=== PATIENT | female | born 1965 | race Caucasian/White ===

== ENCOUNTER → 2016-06-15 10:00 | Outpatient (CLI) | payer MEDICARE ==
--- NOTE | ~2016-06-15 | EC ---
PATIENT:PAOLA TRUONG DATE OF SERVICE: 06/15/16 SEX: F MEDICAL RECORD: [id number] DATE OF : 65 LOCATION:[facility] AGE OF PATIENT: 51 ADMISSION DATE: 06/15/16 REFERRING PHYSICIAN: INTERPRETING PHYSICIAN: TIRSO LADD MD ECHOCARDIOGRAM REPORT ECHO CHARGES 4 ECHO COMPLETE CLINICAL DIAGNOSIS: EDEMA/DYSPNEA/ELEVATED BNP ECHOCARDIOGRAPHIC MEASUREMENTS (adult normal given) AC root (d.<3.7cm) 3.2 LV Septum d (<1.2 cm> 1.5 Valve Excursion 2.0 LV Septum (systole) 1.9 Left Atria (s.<4.0cm> 4.0 LVPW d(<1.2cm) 1.3 RV (d.<2.3cm) 2.8 LVPW (sytole) 1.8 LV diastole(<5.6CM) 5.5 MV E-F(>70mm/sec) LV systole 3.6 LVOT Diameter 1.9 MV exc.(>10mm) Est.ejection fraction (50-75%) Pericardial Effusion N DOPPLER: LVIT A 92.0 E 100 LA RVSP 22.1 LVOT 114 AOP1/2T Asc. Ao 147 RVOT 65.0 RA PA 112 AV Gradient Peak 8.7 AV Mean 5.4 AV Area 1.8 MV Gradient Peak 5.1 MV Mean 1.9 MV Area COMMENTS: Head Filter Tank Tender Helper: Laith HICKMANOE Emergency Medicine Specialist:1 Dr. Ladd TAPE# PACS DATE OF SERVICE: 06/15/2016 Echocardiogram FINDINGS: 1. Left ventricle chamber size is within normal limits. Left ventricular systolic function is normal. Overall ejection fraction estimated at 55%. 2. Left atrium is upper limits of normal at 4.0 cm. Right atrium and right ventricular chamber sizes are as well upper limits of normal. 3. Valvular structures have normal structure and motion. ECHOCARDIOGRAM REPORT [id number] PAOLA TRUONG 4. Doppler interrogation reveals mild mitral regurgitation, mild tricuspid regurgitation. No other valvular insufficiency or stenosis. 5. No evidence of pericardial effusion or left ventricular thrombus. TRANSINT:[id number] Voice Confirmation ID: [id number] DOCUMENT ID: [id number] TIRSO LADD MD CC: [id number] DICTATION DATE: 06/15/16 1440 HIGH SCHOOL COUNSELOR: 06/16/16 0753 DEP CLI 06/15/16 [facility] [address] [place] [address]
== END | disposition home or self-care (01) ==
LOC: D.ECHO 05-30 10:35
DX: R60.0 Localized edema (principal); R06.00 Dyspnea, unspecified

== ENCOUNTER 2016-09-03 10:47 | Emergency (ER) | payer MEDICARE ==
[2016-09-03 11:34] LABS: BASOPHILS 0.1 % (0-2); EOSINOPHILS 0.3 % (0-7); HEMATOCRIT 44.3 % (36.0-48.0); IMMATURE GRANULOCYTES 0.3 % (0-5); LYMPHOCYTES 9.5 % (15-50); MCH 27.5 pg (26.0-34.0); MCHC 31.6 g/dL (31.0-37.0); MCV 86.9 fL (80.0-100.0); MEAN PLATELET VOLUME 10.1 fL (7.4-10.4); MONOCYTES 6.4 % (2-11); NEUTROPHILS 83.4 % (40-80); RDW 14.7 % (11.5-14.5); WBC 14.1 10x3/uL (4.8-10.8)
[2016-09-03 11:41] LABS: PLATELET COUNT 200 10x3/uL (130-400)
[2016-09-03 11:42] LABS: APPEARANCE CLEAR (CLEAR); BILIRUBIN NEGATIVE (NEGATIVE); COLOR YELLOW (YELLOW); GLUCOSE NEGATIVE (NEGATIVE); KETONE NEGATIVE (NEGATIVE); LEUKOCYTE ESTERASE NEGATIVE (NEGATIVE); NITRITE NEGATIVE (NEGATIVE); PROTEIN NEGATIVE (NEGATIVE)
[2016-09-03 11:43] LABS: BACTERIA MODERATE /hpf (NONE SEEN); RED CELLS - URINE 0-5 /hpf (0-5); WHITE CELLS - URINE 0-5 /hpf (0-5)
[2016-09-03 11:44] LABS: MUCUS <1+ /lpf (NONE SEEN)
[2016-09-03 11:57] LABS: ALBUMIN 3.1 g/dL (3.4-5.0); ALKALINE PHOSPHATASE 75 U/L (46-116); ALT (SGPT) 26 U/L (10-68); BILIRUBIN - TOTAL 0.42 mg/dL (0.2-1.3); CALC OSMOLALITY 288 mosm/kg (275-300); CALCIUM 9.2 mg/dL (8.5-10.1); CARBON DIOXIDE 30.5 mmol/L (21.0-32.0); CHLORIDE - SERUM 107 mmol/L (98-107); CREATININE - SERUM 0.8 mg/dL (0.6-1.3); GLUCOSE 128 mg/dL (74-106); PROTEIN - SERUM 6.8 g/dL (6.4-8.2); SODIUM 145 mmol/L (136-145); UREA NITROGEN 8 mg/dL (7-18); eGFR NON AFRICAN AMERICAN 80 mL/min (90-120)
[2016-09-03 12:07] LABS: TROPONIN-I < 0.017 ng/mL (0.000-0.060)
== END 2016-09-03 12:30 | disposition home or self-care (01) ==
LOC: D.ER 10:47
PROVIDERS: Emergency Medicine
DX: F41.9 Anxiety disorder, unspecified (principal); F32.9 Major depressive disorder, single episode, unspecified; M51.36 Other intervertebral disc degeneration, lumbar region; M54.16 Radiculopathy, lumbar region; I10 Essential (primary) hypertension

== ENCOUNTER → 2017-03-07 13:21 | Outpatient (CLI) | payer MEDICARE, MEDICAID | END | disposition home or self-care (01) | LOC: D.MRI 13:21 | DX: M25.561 Pain in right knee (principal) ==

== ENCOUNTER 2017-11-09 16:04 | Emergency (ER) | payer MEDICARE, MEDICAID ==
[~2017-11-09] VITALS: Ht 167.6 cm; Wt 122.7 kg
[2017-11-09 16:16] VITALS: Ht 167.6 cm; Wt 122.7 kg
[2017-11-09] MEDS ORDERED: VERAPAMIL HCL40 MG PO (16:17)
[2017-11-09] MEDS ORDERED: LISINOPRIL5 MG (16:17)
[2017-11-09] MEDS ORDERED: NEXIUM40 MG PO (16:17)
[2017-11-09] MEDS ORDERED: TRAZODONE HCL150 MG (16:18)
[2017-11-09] MEDS ORDERED: XANAX0.25 MG (16:18)
[2017-11-09] MEDS ORDERED: SCOPOLAMINE1 EACH (16:18)
[2017-11-09] MEDS ORDERED: VOLTAREN75 MG PO (16:58)
[2017-11-09 18:24] VITALS: BP 154/105
== END 2017-11-09 18:15 | disposition home or self-care (01) ==
LOC: D.ER 16:04
DX: M25.561 Pain in right knee (principal); I10 Essential (primary) hypertension; K21.9 Gastro-esophageal reflux disease without esophagitis

== ENCOUNTER → 2018-03-18 17:01 | Outpatient (CLI) | payer MEDICARE ==
[2017-11-09 16:16] VITALS: BMI 43.6
[~2018-03-18 17:01] MED LIST: CARAFATE1 G PO; EFFEXOR XR150 MG PO; ELIQUIS2.5 MG PO; HYDROCODON-ACE1 EAC2 PO; LISINOPRIL5 MG PO; MACROBID100 MG PO; NEXIUM40 MG PO; NORCO 10-325 TA1 TAB PO; PHENERGAN25 M1 PO; SCOPOLAMINE1 EACH; TRAZODONE HCL150 MG PO; VERAPAMIL HCL40 MG PO; VOLTAREN75 MG PO; XANAX0.25 MG PO
== END | disposition home or self-care (01) ==
LOC: D.LABREF 17:01
DX: M17.11 Unilateral primary osteoarthritis, right knee (principal); Z11.8 Encounter for screening for other infectious and parasitic diseases

== ENCOUNTER 2018-03-19 10:00 | Inpatient (IN) | payer MEDICARE ==
[~2018-03-19] VITALS: Ht 167.6 cm; Wt 131.8 kg
[~2018-03-19 10:00] MED LIST changes: -CARAFATE1 G PO; -EFFEXOR XR150 MG PO; -ELIQUIS2.5 MG PO; -HYDROCODON-ACE1 EAC2 PO; -MACROBID100 MG PO; -NORCO 10-325 TA1 TAB PO; -PHENERGAN25 M1 PO
[2018-03-19] MEDS ORDERED: NORCO 10-325 TA1 TAB PO (11:11)
[2018-03-19] MEDS ORDERED: EFFEXOR XR150 MG PO (11:12)
[2018-03-19] MEDS ORDERED: CARAFATE1 G PO (11:13)
[2018-03-19 12:52] LABS: BASOPHILS 0.4 % (0-2); EOSINOPHILS 0.4 % (0-7); HEMATOCRIT 43.3 % (36.0-48.0); HEMOGLOBIN 14.2 g/dL (12-16); IMMATURE GRANULOCYTES 0.4 % (0-5); LYMPHOCYTES 43.1 % (15-50); MCH 27.9 pg (26.0-34.0); MCHC 32.8 g/dL (31.0-37.0); MCV 85.1 fL (80.0-100.0); MEAN PLATELET VOLUME 10.5 fL (7.4-10.4); MONOCYTES 4.4 % (2-11); NEUTROPHILS 51.3 % (40-80); RBC 5.09 10x6/uL (4.00-5.40); RDW 14.5 % (11.5-14.5); WBC 9.1 10x3/uL (4.8-10.8)
[2018-03-19 12:55] LABS: PLATELET COUNT 285 10x3/uL (130-400)
[2018-03-19 13:07] LABS: APTT 33.9 SECONDS (22.8-39.4); INR 1.1 (0.85-1.17); PROTIME 13.7 SECONDS (11.6-15.0)
[2018-03-19 13:08] LABS: CALC OSMOLALITY 282 mosm/kg (275-300); CALCIUM 8.8 mg/dL (8.5-10.1); CARBON DIOXIDE 31.1 mmol/L (21.0-32.0); CHLORIDE - SERUM 104 mmol/L (98-107); CREATININE - SERUM 0.7 mg/dL (0.6-1.3); GLUCOSE 81 mg/dL (74-106); POTASSIUM - SERUM 3.6 mmol/L (3.5-5.1); SODIUM 142 mmol/L (136-145); UREA NITROGEN 15 mg/dL (7-18); eGFR NON AFRICAN AMERICAN > 90 mL/min (90-120)
[2018-03-19 13:25] LABS: APPEARANCE CLEAR (CLEAR); BILIRUBIN NEGATIVE (NEGATIVE); COLOR YELLOW (YELLOW); GLUCOSE NEGATIVE (NEGATIVE); KETONE NEGATIVE (NEGATIVE); NITRITE NEGATIVE (NEGATIVE); PROTEIN TRACE mg/dL (NEGATIVE); SPECIFIC GRAVITY 1.005 (1.005-1.020); UROBILINOGEN NORMAL (NORMAL)
[2018-03-19 13:28] LABS: BACTERIA MODERATE /hpf (NONE SEEN); EPITHELIAL CELLS 0-5 /hpf (0-5); RED CELLS - URINE OCC /hpf (0-5)
[2018-03-24] MEDS ORDERED: MACROBID100 MG PO (19:05)
[2018-03-24] MEDS ORDERED: PHENERGAN25 M1 PO (19:05)
[2018-03-27 05:52] VITALS: BP 134/92; BMI 48.3
--- NOTE | 2018-03-27 06:35 | NUR ---
0620-STARTED PERIPHERAL IV TO RIGHT HAND WITH 20G ONE INCH CATHETER TIMES ONE ATTEMPT, PRIMARY IV FLUIDS AT KVO RATE.
[2018-03-27 11:29] VITALS: BP 94/61
--- NOTE | 2018-03-27 11:39 | NUR ---
RECIEVED PT FROM OR DRY HACKING COUGH NOTED. O2 @ 2 LITERS NC. 92%. UP THE O2 TO 3 LITERS. 96%. FAMILY AT BEDSIDE. NO S/S OF ACUTE DISTRESS. CL IN PLACE.
[2018-03-27 12:30] VITALS: BP 97/67
[2018-03-27 16:30] VITALS: BP 113/66
[2018-03-27 18:21] VITALS: BP 143/72; Ht 167.6 cm; Wt 131.8 kg
--- NOTE | 2018-03-27 19:40 | NUR ---
PT RESTING IN BED. DENIES PAIN. FAMILY AT BEDSIDE. NO S/S OF ACUTE DISTRESS. CL IN PLACE.
--- NOTE | 2018-03-27 20:30 | NUR ---
AWAKE,ALERT.NO COMPLAINTS VOICED. RESP EVEN AND UNALBORED. NO DISTRESS NOTED.SL TO RIGHT HAND INTACT WITOUT REDNESS OR EDEMA NOTED. DRSG TO RIGHT KNEE INTACT WITH PROVENA TO RIGHT KNEE INTACT. FAMILY AT BEDSIDE CL IN REACH
[2018-03-27 21:48] VITALS: BP 117/65
[2018-03-28 00:55] VITALS: BP 107/62
--- NOTE | 2018-03-28 01:51 | NUR ---
ASSESSED, PT IS ASLEEP WITH EASY RESPITATIONS AND O2 ORDERED. NO DISTRESS NOTED AND FAMILY AT THE BEDSIDE.
[2018-03-28 04:33] LABS: BASOPHILS 0.1 % (0-2); EOSINOPHILS 0 % (0-7); HEMATOCRIT 37.9 % (36.0-48.0); IMMATURE GRANULOCYTES 0.5 % (0-5); LYMPHOCYTES 12.2 % (15-50); MCH 27.4 pg (26.0-34.0); MCHC 31.7 g/dL (31.0-37.0); MCV 86.5 fL (80.0-100.0); MEAN PLATELET VOLUME 10.3 fL (7.4-10.4); MONOCYTES 6.9 % (2-11); NEUTROPHILS 80.3 % (40-80); PLATELET COUNT 242 10x3/uL (130-400); RBC 4.38 10x6/uL (4.00-5.40); RDW 14.5 % (11.5-14.5); WBC 14.6 10x3/uL (4.8-10.8)
[2018-03-28 04:49] LABS: CALC OSMOLALITY 286 mosm/kg (275-300); CALCIUM 7.9 mg/dL (8.5-10.1); CARBON DIOXIDE 28.1 mmol/L (21.0-32.0); CHLORIDE - SERUM 105 mmol/L (98-107); CREATININE - SERUM 0.7 mg/dL (0.6-1.3); GLUCOSE 142 mg/dL (74-106); POTASSIUM - SERUM 3.5 mmol/L (3.5-5.1); SODIUM 143 mmol/L (136-145); UREA NITROGEN 12 mg/dL (7-18); eGFR NON AFRICAN AMERICAN > 90 mL/min (90-120)
[2018-03-28 05:35] VITALS: BP 106/68
--- NOTE | 2018-03-28 07:30 | NUR ---
AWAKE AND ALERT, EVEN UNLABORED BREATHING, FAMILY PRESENT IN ROOM, WOUND VAC TO RIGHT KNEE, PROVANA, DRAINAGE BAG, TURCIOS CATHETER, DRAINGING CLEAR/YELLOW URINE, DENIES ANY CURRENT NEEDS OR DISCOMFORTS, BED LOWERED AND LOCKED, CALL LIGHT WITHIN REACH. CPOC
[2018-03-28 09:04] VITALS: BP 171/104
[2018-03-28 12:33] VITALS: BP 130/69
--- NOTE | 2018-03-28 13:44 | MORECARE ---
CASE MANAGEMENT DISCHARGE SUMMARY PATIENT: PAOLA TRUONG UNIT: [id number] ADM DATE: 03/27/18 AGE: 53 : 65 SEX: F ROOM/BED: D.2210 AUTHOR: ACE HARRIS PHYSICIAN: REFERRING PHYSICIAN: JEANETTE PADILLA MD DATE OF SERVICE: 03/28/18 Discharge Plan Patient Name: PAOLA TRUONG Facility: [facility]:[place] : 1965 Planned Disposition: Residential Facility Anticipated Discharge Date: Discharge Date: Expected LOS: Initial Reviewer: [email or web address] Initial Review Date: 03/27/2018 Generated: 03/28/18 2:44 pm Patient Name: PAOLA TRUONG Page 20590 at 1344 All edits/amendments must be made on the electronic document DICTATION DATE: 03/28/18 1344 SEO ASSISTANT: JASON 03/28/18 1344 RPT#: [id number] DC DATE: STATUS: ADM IN [facility] [address] [place] [address] END OF REPORT
--- NOTE | 2018-03-28 13:51 | MORECARE ---
CASE MANAGEMENT DISCHARGE SUMMARY PATIENT: PAOLA TRUONG UNIT: [id number] ADM DATE: 03/27/18 AGE: 53 : 65 SEX: F ROOM/BED: D.2210 AUTHOR: ACE HARRIS PHYSICIAN: REFERRING PHYSICIAN: JEANETTE VILLALBA MD DATE OF SERVICE: 03/28/18 Discharge Plan Patient Name: POALA TRUONG Facility: [facility]:[place] : 1965 Planned Disposition: Alf Facility Anticipated Discharge Date: Discharge Date: Expected LOS: Initial Reviewer: [email or web address] Initial Review Date: 03/27/2018 Generated: 03/28/18 2:51 pm Comments DCP- Discharge Planning Updated by [email or web address]: Ami Gannon on 03/28/18 12:[address] Patient Name: PAOLA TRUONG Admission Status: Urgent Accout number: [id number] Admission Date: 03-27-2018 : 1965 Admission Diagnosis: Attending: JEANETTE VILLALBA Current LOS: 1 Anticipated DC Date: Planned Disposition: Alf Facility Primary Insurance: MEDICARE A & B Discharge Planning Comments: CM met with patient to assess discharge planning needs. Patient lives independently at home with her boyfriend. She has 16 steps to enter in her home and is unable to do that at this time. She would like to go to [facility], which is close to her home. I have contacted [place] and sent referral. She will need 3 midnights to be accepted. She has a walker at her bedside and a bedside commode will be delivered when she is able to go home. Dr Villalba set that up in the office with [facility]. CM will continue to follow and assist with DC planning Corporate Pilot: Ami Gannon DCPIA - Discharge Planning Initial Assessment Updated by [email or web address]: Ami Gannon on 03/28/18 1:46 pm * Is the patient Alert and Oriented? Yes * How many steps to enter\exit or inside your home? 16 * PCP SOUZA * Pharmacy [facility] * Preadmission Environment Home with Family * ADLs Independent * Equipment Bedside Commode Rolling Walker * List name and contact numbers for known caregivers / representatives who currently or will assist patient after discharge: RAMY JAMESON [phone] * Verbal permission to speak to the caregivers and representatives has been obtained from the patient. N/A * Community resources currently utilized None * Additional services required to return to the preadmission environment? Yes * Can the patient safely return to the preadmission environment? Yes * Has this patient been hospitalized within the prior 30 days at any hospital? No Last DP export: 03/28/18 12:44 pm Patient Name: PAOLA TRUONG Page 38950 at 1351 All edits/amendments must be made on the electronic document DICTATION DATE: 03/28/18 1351 INTERACTIVE MEDIA MARKETING DIRECTOR: JASON 03/28/18 1351 RPT#: [id number] DC DATE: STATUS: ADM IN [facility] [address] [place] [address] END OF REPORT
--- NOTE | 2018-03-28 13:58 | MORECARE ---
CASE MANAGEMENT DISCHARGE SUMMARY PATIENT: PAOLA TRUONG UNIT: [id number] ADM DATE: 03/27/18 AGE: 53 : 65 SEX: F ROOM/BED: D.2210 AUTHOR: ACE HARRIS PHYSICIAN: REFERRING PHYSICIAN: JEANETTE VILLALBA MD DATE OF SERVICE: 03/28/18 Discharge Plan Patient Name: PAOLA TRUONG Facility: [facility]:[place] : 1965 Planned Disposition: Shelter Facility Anticipated Discharge Date: Discharge Date: Expected LOS: Initial Reviewer: [email or web address] Initial Review Date: 03/27/2018 Generated: 03/28/18 2:58 pm Comments DCP- Discharge Planning Updated by [email or web address]: Ami Gannon on 03/28/18 12:[address] Patient Name: PAOLA TRUONG Admission Status: Urgent Accout number: [id number] Admission Date: 03-27-2018 : 1965 Admission Diagnosis: Attending: JEANETTE VILLALBA Current LOS: 1 Anticipated DC Date: Planned Disposition: Shelter Facility Primary Insurance: MEDICARE A & B Discharge Planning Comments: CM met with patient to assess discharge planning needs. Patient lives independently at home with her boyfriend. She has 16 steps to enter in her home and is unable to do that at this time. She would like to go to [facility], which is close to her home. I have contacted [place] and sent referral. She will need 3 midnights to be accepted. She has a walker at her bedside and a bedside commode will be delivered when she is able to go home. Dr Villalba set that up in the office with [facility]. CM will continue to follow and assist with DC planning Advertising Display Rotator: Ami Gannon DCPIA - Discharge Planning Initial Assessment Updated by [email or web address]: Ami Gannon on 03/28/18 1:46 pm * Is the patient Alert and Oriented? Yes * How many steps to enter\exit or inside your home? 16 * PCP SOUZA * Pharmacy [facility] * Preadmission Environment Home with Family * ADLs Independent * Equipment Bedside Commode Rolling Walker * List name and contact numbers for known caregivers / representatives who currently or will assist patient after discharge: RAMY JAMESON [phone] * Verbal permission to speak to the caregivers and representatives has been obtained from the patient. N/A * Community resources currently utilized None * Additional services required to return to the preadmission environment? Yes * Can the patient safely return to the preadmission environment? Yes * Has this patient been hospitalized within the prior 30 days at any hospital? No External Providers External Provider: [facility] Next Contact Date: Service Request Date: Service Type: Resolution: Reviewer: Comments: Last DP export: 03/28/18 12:51 pm Patient Name: PAOLA TRUONG Page 56413 at 1358 All edits/amendments must be made on the electronic document DICTATION DATE: 03/28/18 135 CAP SEWER: JASON 03/28/18 1358 RPT#: [id number] DC DATE: STATUS: ADM IN [facility] [address] [place] [address] END OF REPORT
--- NOTE | 2018-03-28 15:02 | NUR ---
TURCIOS CATHETER DISCHARGED PER PROTOCOL. CATHTER TIP WAS INTACT. EDUCATED PT ON ASKING FOR HELP WHEN NEEDING TO USE THE RESTROOM, ALSO LET HER KNOW SHE WILL NEED TO URINATE WITHIN THE NEXT 8 HOURS. DENIES ANY CURRENT NEEDS OR DISCOMFORTS, BED LOWERED AND LOCKED, CALL LIGHT WITHIN REACH. CPOC
--- NOTE | 2018-03-28 15:19 | MORECARE ---
CASE MANAGEMENT DISCHARGE SUMMARY PATIENT: PAOLA TRUONG UNIT: [id number] ADM DATE: 03/27/18 AGE: 53 : 65 SEX: F ROOM/BED: D.2210 AUTHOR: ACE HARRIS PHYSICIAN: REFERRING PHYSICIAN: JEANETTE VILLALBA MD DATE OF SERVICE: 03/28/18 Discharge Plan Patient Name: PAOLA TRUONG Facility: [facility]:[place] : 1965 Planned Disposition: Long-Term Facility Anticipated Discharge Date: Discharge Date: Expected LOS: Initial Reviewer: [email or web address] Initial Review Date: 03/27/2018 Generated: 03/28/18 4:19 pm Comments DCP- Discharge Planning Updated by [email or web address]: Ami Gannon on 03/28/18 2:[address] Raz sent DCP- Discharge Planning Updated by [email or web address]: Ami Gannon on 03/28/18 12:[address] Patient Name: PAOLA TRUONG Admission Status: Urgent Accout number: [id number] Admission Date: 03-27-2018 : 1965 Admission Diagnosis: Attending: JEANETTE VILLALBA Current LOS: 1 Anticipated DC Date: Planned Disposition: Long-Term Facility Primary Insurance: MEDICARE A & B Discharge Planning Comments: CM met with patient to assess discharge planning needs. Patient lives independently at home with her boyfriend. She has 16 steps to enter in her home and is unable to do that at this time. She would like to go to [facility], which is close to her home. I have contacted [place] and sent referral. She will need 3 midnights to be accepted. She has a walker at her bedside and a bedside commode will be delivered when she is able to go home. Dr Villalba set that up in the office with [facility]. CM will continue to follow and assist with DC planning Interior Specialist: Ami Gannon DCPIA - Discharge Planning Initial Assessment Updated by [email or web address]: Ami Gannon on 03/28/18 1:46 pm * Is the patient Alert and Oriented? Yes * How many steps to enter\exit or inside your home? 16 * PCP SOUZA * Pharmacy [facility] * Preadmission Environment Home with Family * ADLs Independent * Equipment Bedside Commode Rolling Walker * List name and contact numbers for known caregivers / representatives who currently or will assist patient after discharge: RAMY TRINO [phone] * Verbal permission to speak to the caregivers and representatives has been obtained from the patient. N/A * Community resources currently utilized None * Additional services required to return to the preadmission environment? Yes * Can the patient safely return to the preadmission environment? Yes * Has this patient been hospitalized within the prior 30 days at any hospital? No External Providers External Provider: CLEMENTINA Bazan Next Contact Date: Service Request Date: Service Type: Resolution: Reviewer: Comments: Last DP export: 03/28/18 12:58 pm Patient Name: PAOLA TRUONG Page 53495 at 1519 All edits/amendments must be made on the electronic document DICTATION DATE: 03/28/181518 POWER GENERATING PLANT OPERATOR: JASON 03/28/181518 RPT#: [id number] DC DATE: STATUS: ADM IN [facility] [address] [place] [address] END OF REPORT
[2018-03-28 16:37] VITALS: BP 145/96
--- NOTE | 2018-03-28 16:51 | MORECARE ---
CASE MANAGEMENT DISCHARGE SUMMARY PATIENT: PAOLA TRUONG UNIT: [id number] ADM DATE: 03/27/18 AGE: 53 : 65 SEX: F ROOM/BED: D.2210 AUTHOR: ACE HARRIS PHYSICIAN: REFERRING PHYSICIAN: JEANETTE VILLALBA MD DATE OF SERVICE: 03/28/18 Discharge Plan Patient Name: PAOLA TRUONG Facility: [facility]:[place] : 1965 Planned Disposition: Fdc Facility Anticipated Discharge Date: Discharge Date: Expected LOS: Initial Reviewer: [id number] Initial Review Date: 03/27/2018 Generated: 03/28/18 5:51 pm Comments DCP- Discharge Planning Updated by [email or web address]: Emely Bardales on 03/28/18 3:[address] EZEQUIEL returned, she is a NON-PASRR client. I notified Natali Robbie with [facility] and faxed copy. Natali states they will not be able to accept her until Saturday when they are able to get a bariatric bed. CM will continue to follow and assist with discharge planning/needs. DCP- Discharge Planning Updated by [email or web address]: Ami Gannon on 03/28/18 2:[address] Ezequiel sent DCP- Discharge Planning Updated by [email or web address]: Ami Gannon on 03/28/18 12:[address] Patient Name: PAOLA TRUONG Admission Status: Urgent Accout number: [id number] Admission Date: 03-27-2018 : 1965 Admission Diagnosis: Attending: JEANETTE VILLALBA Current LOS: 1 Anticipated DC Date: Planned Disposition: Fdc Facility Primary Insurance: MEDICARE A & B Discharge Planning Comments: CM met with patient to assess discharge planning needs. Patient lives independently at home with her boyfriend. She has 16 steps to enter in her home and is unable to do that at this time. She would like to go to [facility], which is close to her home. I have contacted [place] and sent referral. She will need 3 midnights to be accepted. She has a walker at her bedside and a bedside commode will be delivered when she is able to go home. Dr Villalba set that up in the office with [facility]. CM will continue to follow and assist with DC planning Crop Grain Or Livestock Farmer: Ami Gannon DCPIA - Discharge Planning Initial Assessment Updated by [email or web address]: Ami Gannon on 03/28/18 1:46 pm * Is the patient Alert and Oriented? Yes * How many steps to enter\exit or inside your home? 16 * PCP SOUZA * Pharmacy [facility] * Preadmission Environment Home with Family * ADLs Independent * Equipment Bedside Commode Rolling Walker * List name and contact numbers for known caregivers / representatives who currently or will assist patient after discharge: RAMY JAMESON [phone] * Verbal permission to speak to the caregivers and representatives has been obtained from the patient. N/A * Community resources currently utilized None * Additional services required to return to the preadmission environment? Yes * Can the patient safely return to the preadmission environment? Yes * Has this patient been hospitalized within the prior 30 days at any hospital? No Last DP export: 03/28/18 2:19 pm Patient Name: PAOLA TRUONG Page 49672 at 1651 All edits/amendments must be made on the electronic document DICTATION DATE: 03/28/181649 SOCCER COACH: JASON 03/28/181649 RPT#: [id number] DC DATE: STATUS: ADM IN [facility] [address] [place] [address] END OF REPORT
--- NOTE | 2018-03-28 19:50 | NUR ---
RECEIVED REPORT, ASSUMED CARE, SLEEPING, NO S/S OF DISTRESS NOTED, CALL LIGHT IN REACH, BED LOWEST POSITION, WILL CONTINUE TO MONITOR
[2018-03-28 20:00] VITALS: BP 164/103
[2018-03-29] VITALS: BP 159/96
--- NOTE | 2018-03-29 02:07 | NUR ---
ASSESSED, PT IS ASLEEP WITH EASY RESPIRATIONS AND NO DISTRESS NOTED. CPM AT THE BEDSIDE.
[2018-03-29 03:00] VITALS: BP 148/81
[2018-03-29 05:49] LABS: BASOPHILS 0.3 % (0-2); EOSINOPHILS 0.6 % (0-7); HEMATOCRIT 38.5 % (36.0-48.0); HEMOGLOBIN 12.1 g/dL (12-16); IMMATURE GRANULOCYTES 0.8 % (0-5); LYMPHOCYTES 27.1 % (15-50); MCH 27.6 pg (26.0-34.0); MCHC 31.4 g/dL (31.0-37.0); MCV 87.7 fL (80.0-100.0); MEAN PLATELET VOLUME 10.6 fL (7.4-10.4); NEUTROPHILS 62.2 % (40-80); PLATELET COUNT 203 10x3/uL (130-400); RBC 4.39 10x6/uL (4.00-5.40); RDW 14.9 % (11.5-14.5); WBC 13.1 10x3/uL (4.8-10.8)
--- NOTE | 2018-03-29 07:26 | NUR ---
LAYING IN BED, AWAKE AND ALERT, ORIENTED X4. IV IN RIGHT WRIST, PATENT, SALINE LOCKED, PROVANA WOUND VAC TO RIGHT KNEE, REMINDED TO USE CALL LIGHT AND ASK FOR ASSIST WHEN NEEDED RESTROOM ASSISTANCE, DENIES ANY OTHER NEEDS OR DISCOMFORTS, BED LOWERED AND LOCKED. CALL LIGHT WITHIN REACH. CPOC
[2018-03-29 11:03] VITALS: BP 109/75
[2018-03-29 15:32] VITALS: BP 96/72
[2018-03-29 18:31] VITALS: BP 103/53
--- NOTE | 2018-03-29 19:30 | NUR ---
RECEIVED REPORT, ASSUMED CARE, A&O, DENIES NEEDS, BED LOWEST POSITION, CALL LIGHT IN REACH, NO S/S OF DISTRESS NOTED, WILL CONTINUE POC
[2018-03-29 20:00] VITALS: BP 107/54
--- NOTE | 2018-03-29 20:20 | NUR ---
PLACED ON CPM, OFF AT 2320
[2018-03-30] VITALS: BP 110/51
[2018-03-30 03:00] VITALS: BP 116/44
--- NOTE | 2018-03-30 05:22 | NUR ---
PT SITTING UP IN BED PLAYING CARDS WITH FAMILY MEMBER. BROUGHT PT COFFEE. NO OTHER NEEDS. AGREE WITH SCRAP STRIPPER HAND ASSESSMENT, CONTINUE PLAN OF CARE.
[2018-03-30 06:59] LABS: BASOPHILS 0.3 % (0-2); EOSINOPHILS 1.4 % (0-7); HEMATOCRIT 36.5 % (36.0-48.0); HEMOGLOBIN 11.5 g/dL (12-16); IMMATURE GRANULOCYTES 1.1 % (0-5); LYMPHOCYTES 31.3 % (15-50); MCH 27.8 pg (26.0-34.0); MCHC 31.5 g/dL (31.0-37.0); MCV 88.4 fL (80.0-100.0); MEAN PLATELET VOLUME 10.6 fL (7.4-10.4); MONOCYTES 9.2 % (2-11); NEUTROPHILS 56.7 % (40-80); PLATELET COUNT 232 10x3/uL (130-400); RBC 4.13 10x6/uL (4.00-5.40); RDW 15.3 % (11.5-14.5); WBC 12.4 10x3/uL (4.8-10.8)
[2018-03-30 09:10] VITALS: BP 112/64
[2018-03-30 13:02] VITALS: BP 83/51
[2018-03-30 17:32] VITALS: BP 108/59
--- NOTE | 2018-03-30 19:50 | NUR ---
RECEIVED REPORT, ASSUMED CARE, DENIES NEEDS, BED LOWEST POSITION, CALL LIGHT IN REACH, WALKER AT BEDSIDE, A&O, ASSESSMENT COMPLETE, WILL CONTINUE POC
[2018-03-30 20:00] VITALS: BP 110/58
[2018-03-30 21:19] LABS: APPEARANCE CLEAR (CLEAR); BILIRUBIN NEGATIVE (NEGATIVE); COLOR YELLOW (YELLOW); GLUCOSE NEGATIVE (NEGATIVE); KETONE NEGATIVE (NEGATIVE); NITRITE NEGATIVE (NEGATIVE); PROTEIN NEGATIVE (NEGATIVE)
[2018-03-30 21:22] LABS: BACTERIA FEW /hpf (NONE SEEN); RED CELLS - URINE OCC /hpf (0-5); WHITE CELLS - URINE 0-5 /hpf (0-5)
[2018-03-31] VITALS: BP 105/60
--- NOTE | 2018-03-31 02:36 | NUR ---
PT RESTING QUIETLY, EYES CLOSED. RESP EVEN, UNLABORED. NO DISTRESS NOTED. AGREEN WITH RECEPTION AGENT'S ASSESSMENT, CONTINUE PLAN OF CARE.
[2018-03-31 03:00] VITALS: BP 110/54
[2018-03-31 08:52] VITALS: BP 110/77
--- NOTE | 2018-03-31 12:15 | MORECARE ---
CASE MANAGEMENT DISCHARGE SUMMARY PATIENT: PAOLA TRUONG UNIT: [id number] ADM DATE: 03/27/18 AGE: 53 : 65 SEX: F ROOM/BED: D.2210 AUTHOR: ACE HARRIS PHYSICIAN: REFERRING PHYSICIAN: JEANETTE VILLALBA MD DATE OF SERVICE: 03/31/18 Discharge Plan Patient Name: PAOLA TRUONG Facility: [facility]:[place] : 1965 Planned Disposition: Nursing Home Facility Anticipated Discharge Date: Discharge Date: Expected LOS: Initial Reviewer: [email or web address] Initial Review Date: 03/27/2018 Generated: 03/31/18 1:15 pm Comments DCP- Discharge Planning Updated by [email or web address]: Ami Gannon on 03/31/18 11:[address] IMM SERVED AND EXPLAINED, SHE SHULD BE GOING TO [facility] TO A SKILLED BED CM TO FOLLOW AND ASSIST WITH DC PLANNING DCP- Discharge Planning Updated by [email or web address]: Emely Bardales on 03/28/18 3:[address] EZEQUIEL returned, she is a NON-PASRR client. I notified Natali Avalos with [facility] and faxed copy. Natali states they will not be able to accept her until Saturday when they are able to get a bariatric bed. CM will continue to follow and assist with discharge planning/needs. DCP- Discharge Planning Updated by [email or web address]: Ami Gannon on 03/28/18 2:[address] Ezequiel sent DCP- Discharge Planning Updated by [email or web address]: Ami Gannon on 03/28/18 12:[address] Patient Name: PAOLA TRUONG Admission Status: Urgent Accout number: [id number] Admission Date: 03-27-2018 : 1965 Admission Diagnosis: Attending: JEANETTE VILLALBA Current LOS: 1 Anticipated DC Date: Planned Disposition: Nursing Home Facility Primary Insurance: MEDICARE A & B Discharge Planning Comments: CM met with patient to assess discharge planning needs. Patient lives independently at home with her boyfriend. She has 16 steps to enter in her home and is unable to do that at this time. She would like to go to [facility], which is close to her home. I have contacted [place] and sent referral. She will need 3 midnights to be accepted. She has a walker at her bedside and a bedside commode will be delivered when she is able to go home. Dr Villalba set that up in the office with [facility]. CM will continue to follow and assist with DC planning Weed Sprayer: Ami Gannon DCPIA - Discharge Planning Initial Assessment Updated by [email or web address]: Ami Gannon on 03/28/18 1:46 pm * Is the patient Alert and Oriented? Yes * How many steps to enter\exit or inside your home? 16 * PCP SOUZA * Pharmacy [facility] * Preadmission Environment Home with Family * ADLs Independent * Equipment Bedside Commode Rolling Walker * List name and contact numbers for known caregivers / representatives who currently or will assist patient after discharge: RAMY JAMESON [phone] * Verbal permission to speak to the caregivers and representatives has been obtained from the patient. N/A * Community resources currently utilized None * Additional services required to return to the preadmission environment? Yes * Can the patient safely return to the preadmission environment? Yes * Has this patient been hospitalized within the prior 30 days at any hospital? No Coverage Notice Reviewer: [id number] - Ami Gannon Notice Issued Date-Time: 03/31/2018 12:00 Notice Type: IM Discharge Notice Notice Delivered To: Patient Relationship to Patient: [employer] Name: Delivery Method: HAND - Hand Delivered Mónica Days: Prior Verbal Notification: Recipient Understood Notice: Yes Recipient Signature: Yes Med Rec Note Co-signed by Attending: Coverage Notice Comment: Last DP export: 03/28/18 3:51 pm Patient Name: PAOLA TRUONG Page 56858 at 1215 All edits/amendments must be made on the electronic document DICTATION DATE: 03/31/18 1215 HELICOPTER MECHANIC: JASON 03/31/18 1215 RPT#: [id number] DC DATE: STATUS: ADM IN [facility] [address] [place] [address] END OF REPORT
[2018-03-31 13:40] VITALS: BP 102/64
--- NOTE | 2018-03-31 15:36 | MORECARE ---
CASE MANAGEMENT DISCHARGE SUMMARY PATIENT: PAOLA TRUONG UNIT: [id number] ADM DATE: 03/27/18 AGE: 53 : 65 SEX: F ROOM/BED: D.2210 AUTHOR: ACE HARRIS PHYSICIAN: REFERRING PHYSICIAN: JEANETTE VILLALBA MD DATE OF SERVICE: 03/31/18 Discharge Plan Patient Name: PAOLA TRUONG Facility: [facility]:[place] : 1965 Planned Disposition: Retirement Facility Anticipated Discharge Date: Discharge Date: Expected LOS: Initial Reviewer: [email or web address] Initial Review Date: 03/27/2018 Generated: 03/31/18 4:35 pm Comments DCP- Discharge Planning Updated by [email or web address]: Ami Gannon on 03/31/18 2:[address] PATIENT WILL BE PICKED UP BY [facility] [place]. TO A SKILLED BED DCP- Discharge Planning Updated by [email or web address]: Ami Gannon on 03/31/18 11:[address] IMM SERVED AND EXPLAINED, SHE SHULD BE GOING TO [facility] TO A SKILLED BED CM TO FOLLOW AND ASSIST WITH DC PLANNING DCP- Discharge Planning Updated by [email or web address]: Emely Bardales on 03/28/18 3:[address] [facility]ZEQUIEL returned, she is a NON-[facility] client. I notified Natali Robbie with [facility] and faxed copy. Natali states they will not be able to accept her until Saturday when they are able to get a bariatric bed. CM will continue to follow and assist with discharge planning/needs. DCP- Discharge Planning Updated by [email or web address]: Ami Gannon on 03/28/18 2:[address] [place] sent DCP- Discharge Planning Updated by [id number]: Ami Gannon on 03/28/18 12:[address] Patient Name: PAOLA TRUONG Admission Status: Urgent Accout number: [id number] Admission Date: 03-27-2018 : 1965 Admission Diagnosis: Attending: JEANETTE VILLALBA Current LOS: 1 Anticipated DC Date: Planned Disposition: Retirement Facility Primary Insurance: MEDICARE A & B Discharge Planning Comments: CM met with patient to assess discharge planning needs. Patient lives independently at home with her boyfriend. She has 16 steps to enter in her home and is unable to do that at this time. She would like to go to [facility], which is close to her home. I have contacted [facility] and sent referral. She will need 3 midnights to be accepted. She has a walker at her bedside and a bedside commode will be delivered when she is able to go home. Dr Villalba set that up in the office with [facility]. CM will continue to follow and assist with DC planning Transmitter Tester: Ami Gannon DCPIA - Discharge Planning Initial Assessment Updated by [email or web address]: Ami Gannon on 03/28/18 1:46 pm * Is the patient Alert and Oriented? Yes * How many steps to enter\exit or inside your home? 16 * PCP [facility] * Pharmacy [facility] * Preadmission Environment Home with Family * ADLs Independent * Equipment Bedside Commode Rolling Walker * List name and contact numbers for known caregivers / representatives who currently or will assist patient after discharge: RAMY JAMESON [phone] * Verbal permission to speak to the caregivers and representatives has been obtained from the patient. N/A * Community resources currently utilized None * Additional services required to return to the preadmission environment? Yes * Can the patient safely return to the preadmission environment? Yes * Has this patient been hospitalized within the prior 30 days at any hospital? No Coverage Notice Reviewer: [id number] - Ami Gannon Notice Issued Date-Time: 03/31/2018 12:00 Notice Type: IM Discharge Notice Notice Delivered To: Patient Relationship to Patient: Energy Assistant Name: Delivery Method: HAND - Hand Delivered Mónica Days: Prior Verbal Notification: Recipient Understood Notice: Yes Recipient Signature: Yes Med Rec Note Co-signed by Attending: Coverage Notice Comment: Last DP export: 03/31/18 11:15 am Patient Name: PAOLA TRUONG Page 61698 at 1536 All edits/amendments must be made on the electronic document DICTATION DATE: 03/31/181534 STEEL ERECTOR APPRENTICE: JASON 03/31/181534 RPT#: [id number] DC DATE: STATUS: ADM IN [facility] [address] [place] [address] END OF REPORT
[2018-03-31] MEDS ORDERED: ELIQUIS2.5 MG PO (15:41)
[2018-03-31] MEDS ORDERED: HYDROCODON-ACE1 EAC2 PO (15:43)
[2018-03-31 16:00] VITALS: BP 100/64
--- NOTE | 2018-03-31 17:00 | NUR ---
IV THERAPY DC'ED WITH TIP INTACT. DISCHARGE INSTRUCTIONS GIVEN AND SHE VOICED UNDERSTANDING
--- NOTE | 2018-04-07 11:57 | MORECARE ---
CASE MANAGEMENT DISCHARGE SUMMARY PATIENT: PAOLA TRUONG UNIT: [id number] ADM DATE: 03/27/18 AGE: 53 : 65 SEX: F ROOM/BED: D.2210 AUTHOR: ACE HARRIS PHYSICIAN: REFERRING PHYSICIAN: JEANETTE VILLALBA MD DATE OF SERVICE: 04/07/18 Discharge Plan Patient Name: PAOLA TRUONG Facility: [facility]:[place] : 1965 Planned Disposition: Fpc Facility Anticipated Discharge Date: Discharge Date: 03/31/2018 Expected LOS: 0 Initial Reviewer: [email or web address] Initial Review Date: 03/27/2018 Generated: 04/07/18 12:57 pm Comments DCP- Discharge Planning Updated by [email or web address]: Ami Gannon on 03/31/18 2:[address] PATIENT WILL BE PICKED UP BY [facility] TO A SKILLED BED DCP- Discharge Planning Updated by [email or web address]: Ami Gannon on 03/31/18 11:[address] IMM SERVED AND EXPLAINED, SHE SHULD BE GOING TO [facility] TO A SKILLED BED CM TO FOLLOW AND ASSIST WITH DC PLANNING DCP- Discharge Planning Updated by [email or web address]: Emely Bardales on 03/28/18 3:[address] EZEQUIEL returned, she is a NON-[facility] client. I notified Natali Robbie with [facility] [place] and faxed copy. Natali states they will not be able to accept her until Saturday when they are able to get a bariatric bed. CM will continue to follow and assist with discharge planning/needs. DCP- Discharge Planning Updated by [email or web address]: Ami Gannon on 03/28/18 2:[address] [place] sent DCP- Discharge Planning Updated by [email or web address]: Ami Gannon on 03/28/18 12:[address] Patient Name: PAOLA TRUONG Admission Status: Urgent Accout number: [id number] Admission Date: 03-27-2018 : 1965 Admission Diagnosis: Attending: JEANETTE VILLALBA Current LOS: 1 Anticipated DC Date: Planned Disposition: Fpc Facility Primary Insurance: MEDICARE A & B Discharge Planning Comments: CM met with patient to assess discharge planning needs. Patient lives independently at home with her boyfriend. She has 16 steps to enter in her home and is unable to do that at this time. She would like to go to [facility], which is close to her home. I have contacted [facility] and sent referral. She will need 3 midnights to be accepted. She has a walker at her bedside and a bedside commode will be delivered when she is able to go home. Dr Villalba set that up in the office with [facility]. CM will continue to follow and assist with DC planning Water Valve Repairer: Ami Gannon DCPIA - Discharge Planning Initial Assessment Updated by [email or web address]: Ami Gannon on 03/28/18 1:46 pm * Is the patient Alert and Oriented? Yes * How many steps to enter\exit or inside your home? 16 * PCP [facility] * Pharmacy [facility] * Preadmission Environment Home with Family * ADLs Independent * Equipment Bedside Commode Rolling Walker * List name and contact numbers for known caregivers / representatives who currently or will assist patient after discharge: RAMY JAMESNO [phone] * Verbal permission to speak to the caregivers and representatives has been obtained from the patient. N/A * Community resources currently utilized None * Additional services required to return to the preadmission environment? Yes * Can the patient safely return to the preadmission environment? Yes * Has this patient been hospitalized within the prior 30 days at any hospital? No Coverage Notice Reviewer: [id number] - Ami Gannon Notice Issued Date-Time: 03/31/2018 12:00 Notice Type: IM Discharge Notice Notice Delivered To: Patient Relationship to Patient: Force Dispatcher Name: Delivery Method: HAND - Hand Delivered Mónica Days: Prior Verbal Notification: Recipient Understood Notice: Yes Recipient Signature: Yes Med Rec Note Co-signed by Attending: Coverage Notice Comment: Last DP export: 03/31/18 2:36 pm Patient Name: PAOLA TRUONG Page 09102 at 1157 All edits/amendments must be made on the electronic document DICTATION DATE: 04/07/18 1156 SQL DATABASE DEVELOPER: JASON 04/07/18 1156 RPT#: [id number] DC DATE:03/31/18 STATUS: DIS IN [facility] [address] [place] [address] END OF REPORT
== END 2018-03-31 17:33 | DRG 470 ==
LOC: D.SDCHOLD 10:00 → D.MS 03-27 11:02
PROVIDERS: Orthopaedic Surgery; ADMIT Orthopaedic Surgery
PROC: 0SRC0J9 Replacement of Right Knee Joint with Synthetic Substitute, Cemented, Open Approach (ICD-10-PCS; principal; 2018-03-27 07:30)
DX: M17.11 Unilateral primary osteoarthritis, right knee (principal); N39.0 Urinary tract infection, site not specified; I10 Essential (primary) hypertension

== ENCOUNTER 2018-03-24 15:17 | Emergency (ER) | payer MEDICARE ==
[~2018-03-24] VITALS: Ht 167.6 cm; Wt 131.8 kg
[~2018-03-24 15:17] MED LIST changes: +CARAFATE1 G PO; +EFFEXOR XR150 MG PO; +NORCO 10-325 TA1 TAB PO
[2018-03-24 15:19] VITALS: Ht 167.6 cm; Wt 131.8 kg
[2018-03-24 16:40] LABS: APPEARANCE CLEAR (CLEAR); BACTERIA MANY /hpf (NONE SEEN); BILIRUBIN NEGATIVE (NEGATIVE); COLOR YELLOW (YELLOW); GLUCOSE NEGATIVE (NEGATIVE); KETONE NEGATIVE (NEGATIVE); NITRITE POSITIVE (NEGATIVE); PROTEIN TRACE mg/dL (NEGATIVE); RED CELLS - URINE 0-5 /hpf (0-5); UROBILINOGEN NORMAL (NORMAL)
[2018-03-24 16:41] LABS: MUCUS <1+ /lpf (NONE SEEN)
[2018-03-24 16:53] LABS: BASOPHILS 0.3 % (0-2); EOSINOPHILS 0.1 % (0-7); HEMATOCRIT 44.6 % (36.0-48.0); HEMOGLOBIN 14.7 g/dL (12-16); IMMATURE GRANULOCYTES 0.9 % (0-5); LYMPHOCYTES 21.6 % (15-50); MCH 28.4 pg (26.0-34.0); MCV 86.1 fL (80.0-100.0); MEAN PLATELET VOLUME 10.3 fL (7.4-10.4); MONOCYTES 4.1 % (2-11); PLATELET COUNT 279 10x3/uL (130-400); RBC 5.18 10x6/uL (4.00-5.40); RDW 14.3 % (11.5-14.5); WBC 11.1 10x3/uL (4.8-10.8)
[2018-03-24 17:01] LABS: APTT 32.5 SECONDS (22.8-39.4); INR 1.13 (0.85-1.17)
[2018-03-24 17:08] LABS: ALBUMIN 3.4 g/dL (3.4-5.0); ALKALINE PHOSPHATASE 70 U/L (46-116); ALT (SGPT) 18 U/L (10-68); BILIRUBIN - TOTAL 0.35 mg/dL (0.2-1.3); CALC OSMOLALITY 282 mosm/kg (275-300); CALCIUM 8.8 mg/dL (8.5-10.1); CARBON DIOXIDE 28.6 mmol/L (21.0-32.0); CHLORIDE - SERUM 104 mmol/L (98-107); CREATININE - SERUM 0.7 mg/dL (0.6-1.3); GLUCOSE 110 mg/dL (74-106); POTASSIUM - SERUM 3.6 mmol/L (3.5-5.1); PROTEIN - SERUM 7.5 g/dL (6.4-8.2); SODIUM 142 mmol/L (136-145); UREA NITROGEN 10 mg/dL (7-18); eGFR NON AFRICAN AMERICAN > 90 mL/min (90-120)
[2018-03-24 17:18] LABS: AMYLASE - SERUM 38 U/L (25-115); CKMB 1.1 U/L (0.0-3.6); CREATINE KINASE 79 UL (21-215); LIPASE 71 U/L (73-393); TROPONIN-I < 0.017 ng/mL (0.000-0.060)
[2018-03-24] MEDS ORDERED: PHENERGAN25 M1 PO (19:05)
[2018-03-24] MEDS ORDERED: MACROBID100 MG PO (19:05)
[2018-03-24 19:56] VITALS: BP 158/106
== END 2018-03-24 19:56 | disposition home or self-care (01) ==
LOC: D.ER 15:17
PROVIDERS: Family Medicine
DX: N39.0 Urinary tract infection, site not specified (principal); M54.5 Low back pain; R11.2 Nausea with vomiting, unspecified; I10 Essential (primary) hypertension

== ENCOUNTER 2019-04-24 12:19 | Emergency (ER) | payer MEDICARE ==
[~2019-04-24] VITALS: Ht 167.6 cm; Wt 135.5 kg
[~2019-04-24 12:19] MED LIST changes: +ELIQUIS2.5 MG PO; +HYDROCODON-ACE1 EAC2 PO; +MACROBID100 MG PO; +PHENERGAN25 M1 PO
[2019-04-24 12:20] VITALS: Ht 167.6 cm; Wt 135.5 kg
[2019-04-24 12:45] LABS: BASOPHILS 0.1 % (0-2); EOSINOPHILS 0 % (0-7); HEMOGLOBIN 14.4 g/dL (12-16); IMMATURE GRANULOCYTES 0.4 % (0-5); LYMPHOCYTES 8.2 % (15-50); MCH 27.7 pg (26.0-34.0); MCV 86.5 fL (80.0-100.0); NEUTROPHILS 89.3 % (40-80); PLATELET COUNT 281 10x3/uL (130-400); RDW 13.6 % (11.5-14.5); WBC 9.1 10x3/uL (4.8-10.8)
[2019-04-24 12:54] LABS: CALC OSMOLALITY 283 mosm/kg (275-300); CALCIUM 8.8 mg/dL (8.5-10.1); CARBON DIOXIDE 30.1 mmol/L (21.0-32.0); CHLORIDE - SERUM 105 mmol/L (98-107); CREATININE - SERUM 0.8 mg/dL (0.6-1.3); GLUCOSE 146 mg/dL (74-106); POTASSIUM - SERUM 3.4 mmol/L (3.5-5.1); SODIUM 142 mmol/L (136-145); UREA NITROGEN 8 mg/dL (7-18); eGFR NON AFRICAN AMERICAN 79 mL/min (90-120)
[2019-04-24 13:00] LABS: ALBUMIN 3.2 g/dL (3.4-5.0); ALKALINE PHOSPHATASE 84 U/L (30-120); ALT (SGPT) 15 U/L (10-68); BILIRUBIN - TOTAL 0.21 mg/dL (0.2-1.3); PROTEIN - SERUM 7.8 g/dL (6.4-8.2)
[2019-04-24 13:15] LABS: BILIRUBIN NEGATIVE (NEGATIVE); GLUCOSE NEGATIVE (NEGATIVE); KETONE NEGATIVE (NEGATIVE); NITRITE NEGATIVE (NEGATIVE); UROBILINOGEN NORMAL (NORMAL)
[2019-04-24 13:17] LABS: RED CELLS - URINE RARE /hpf (0-5); WHITE CELLS - URINE 0-5 /hpf (NEGATIVE)
[2019-04-24 13:19] LABS: BACTERIA FEW /hpf (NEGATIVE); EPITHELIAL CELLS 0-5 /hpf (0-5)
[2019-04-24] MEDS ORDERED: ZOFRAN ODT4 MG/UDTAB PO (14:17)
[2019-04-24 16:48] VITALS: BP 156/94
== END 2019-04-24 16:56 | disposition home or self-care (01) ==
LOC: D.ER 12:19
PROVIDERS: Emergency Medicine
DX: K52.89 Other specified noninfective gastroenteritis and colitis (principal); I10 Essential (primary) hypertension; R11.2 Nausea with vomiting, unspecified

== ENCOUNTER 2019-05-10 12:00 | Emergency (ER) | payer MEDICARE ==
[~2019-05-10] VITALS: Ht 167.6 cm; Wt 131.4 kg
[~2019-05-10 12:00] MED LIST changes: +ZOFRAN ODT4 MG/UDTAB PO
[2019-05-10 12:02] VITALS: Ht 167.6 cm; Wt 131.4 kg
[2019-05-10 12:33] LABS: BASOPHILS 0.3 % (0-2); EOSINOPHILS 0.1 % (0-7); HEMATOCRIT 48.6 % (36.0-48.0); HEMOGLOBIN 15.7 g/dL (12-16); IMMATURE GRANULOCYTES 0.3 % (0-5); LYMPHOCYTES 12.8 % (15-50); MCH 27.7 pg (26.0-34.0); MCHC 32.3 g/dL (31.0-37.0); MCV 85.7 fL (80.0-100.0); MEAN PLATELET VOLUME 10.4 fL (7.4-10.4); MONOCYTES 2.4 % (2-11); NEUTROPHILS 84.1 % (40-80); RBC 5.67 10x6/uL (4.00-5.40); RDW 13.8 % (11.5-14.5); WBC 9.9 10x3/uL (4.8-10.8)
[2019-05-10 12:42] LABS: CALC OSMOLALITY 278 mosm/kg (275-300); CALCIUM 9.2 mg/dL (8.5-10.1); CARBON DIOXIDE 27.1 mmol/L (21.0-32.0); CHLORIDE - SERUM 102 mmol/L (98-107); CREATININE - SERUM 0.9 mg/dL (0.6-1.3); GLUCOSE 151 mg/dL (74-106); POTASSIUM - SERUM 3.7 mmol/L (3.5-5.1); SODIUM 139 mmol/L (136-145); UREA NITROGEN 7 mg/dL (7-18); eGFR NON AFRICAN AMERICAN 69 mL/min (90-120)
[2019-05-10 12:59] LABS: ALBUMIN 3.7 g/dL (3.4-5.0); ALKALINE PHOSPHATASE 76 U/L (30-120); ALT (SGPT) 22 U/L (10-68); BILIRUBIN - TOTAL 0.48 mg/dL (0.2-1.3); CKMB 0.3 U/L (0.0-3.6); CREATINE KINASE 49 UL (21-215); PRO BNP 108 pg/mL (0-125); PROTEIN - SERUM 8.1 g/dL (6.4-8.2)
[2019-05-10 13:02] LABS: PLATELET COUNT 363 10x3/uL (130-400)
[2019-05-10 13:03] LABS: TROPONIN-I < 0.017 ng/mL (0.000-0.060)
[2019-05-10 13:17] LABS: APTT 34.2 SECONDS (22.8-39.4); INR 1.06 (0.85-1.17); PROTIME 13.7 SECONDS (11.6-15.0)
[2019-05-10] MEDS ORDERED: CYCLOBENZAPRINE10 MG PO (14:15)
[2019-05-10] MEDS ORDERED: ACETAMINOPHEN500 M1 PO (14:15)
[2019-05-10 14:27] VITALS: BP 154/98
== END 2019-05-10 14:29 | disposition home or self-care (01) ==
LOC: D.ER 12:00
PROVIDERS: Family Medicine
DX: R05 Cough (principal); R51 Headache; R06.02 Shortness of breath